=== PATIENT | female | born 1990 | race Caucasian/White ===

== ENCOUNTER 2020-05-09 17:48 | Inpatient (IN) | payer OTHER, MEDICAID ==
[~2020-05-09] VITALS: Ht 157.5 cm; Wt 86.2 kg
[2020-05-10] MEDS ORDERED: MELATONIN 3 MG TABLET PO PRN (11:30)
[2020-05-10 13:29] VITALS: BP 140/93
[2020-05-10] MEDS ORDERED: BACLOFEN 10 MG TABLET PO PRN (13:30)
[2020-05-10] MEDS ORDERED: *NON-FORMULARY MED [ENTER DRUG, DOSE, FREQ IN COMMENTS] CLINICAL ONE (13:30)
[2020-05-10 15:00] VITALS: BP 150/86
[2020-05-10] MEDS ORDERED: SODIUM CHLORIDE 0.9% 250 ML IV ONE (16:31)
[2020-05-10] MEDS: NYSTATIN 15 GM POWDER BOTTLE TP SCH ×2 (16:45→20:48)
[2020-05-10] MEDS: VANCOMYCIN HCL 1.5 GM in DEXTROSE 5%-WATER 250 ML IV SCH ×2 (16:45→23:51)
[2020-05-10] MEDS: DOCUSATE SODIUM 100 MG CAPSULE PO SCH (20:45)
[2020-05-10] MEDS: SENNA 187 MG TABLET PO SCH (20:45)
[2020-05-10] MEDS: BISACODYL 10 MG RECTAL RECTAL SUPPOSITORY PR SCH ×2 (20:46→21:00)
[2020-05-10] MEDS: CHLORHEXIDINE GLUCONATE 4% 118 ML TOPICAL LIQUID TP SCH (20:47)
[2020-05-10] MEDS: GABAPENTIN 300 MG CAPSULE PO SCH (20:47)
[2020-05-10] MEDS: ENOXAPARIN SODIUM 100 MG/ML PF SYRINGE SQ SCH (20:48)
[2020-05-10 23:51] VITALS: BP 156/94
[2020-05-11] MEDS: MEROPENEM 1 GM in SODIUM CHLORIDE 0.9% 100 ML IV SCH ×2 (02:19→11:34)
[2020-05-11 06:54] LABS: BASOPHILS % (AUTO) 1.1 % (0.0-2.0); HEMATOCRIT 26.8 % (36-46); HEMOGLOBIN 8.8 g/dL (12.0-16.0); LYMPHOCYTES # (AUTO) 1.4 K/uL (1.0-4.8); LYMPHOCYTES % (AUTO) 23.9 % (22.0-44.0); MEAN CORPUSCULAR HEMOGLOBIN 29.6 pg (26.0-34.0); MEAN CORPUSCULAR HGB CONC 32.7 G/dL (31.0-37.0); MEAN CORPUSCULAR VOLUME 91 fL (80-100); MONOCYTES # (AUTO) 0.6 K/uL (0.1-1.0); MONOCYTES % (AUTO) 9.2 % (2.0-9.0); NEUTROPHILS # (AUTO) 3.8 K/uL (1.8-7.7); NEUTROPHILS % (AUTO) 62.8 % (40.0-70.0); PLATELET COUNT (AUTO) 367 K/uL (150-450); RED BLOOD CELL COUNT(AUTO) 2.96 MIL/uL (4.00-5.20); RED CELL DISTRIBUTION WIDTH 14.3 % (11.5-14.5)
[2020-05-11 07:07] LABS: ALANINE AMINOTRANSFERASE 51 U/L (12-78); ALKALINE PHOSPHATASE 82 U/L (46-116); ANION GAP 9 mmol/L (8-16); ASPARTATE AMINOTRANSFERASE 30 U/L (15-37); BILIRUBIN,TOTAL 0.2 mg/dL (0.1-1.0); CALCIUM, TOTAL 8.2 mg/dL (8.8-10.5); CARBON DIOXIDE 27 mmol/L (22-29); CHLORIDE 102 mmol/L (98-107); GLOMERULAR FILTR. RATE CALC > 60 mL/min (>60); GLUCOSE,RANDOM 97 mg/dL (70-110); POTASSIUM 3.3 mmol/L (3.5-5.1); SODIUM SERUM 138 mmol/L (136-145); TOTAL PROTEIN, SERUM 5.7 g/dL (6.4-8.2); UREA NITROGEN, BLOOD 6 mg/dL (7-18)
[2020-05-11] MEDS: VANCOMYCIN HCL 1.5 GM in DEXTROSE 5%-WATER 250 ML IV SCH ×3 (07:52→22:01)
[2020-05-11] MEDS ORDERED: ERTAPENEM SODIUM 1 GM/VIAL IM SCH (09:00)
[2020-05-11] MEDS: ENOXAPARIN SODIUM 100 MG/ML PF SYRINGE SQ SCH ×2 (10:05→21:27)
[2020-05-11] MEDS: ACETAMINOPHEN 325 MG TABLET PO PRN (10:05)
[2020-05-11] MEDS: DOCUSATE SODIUM 100 MG CAPSULE PO SCH (10:05)
[2020-05-11] MEDS: GABAPENTIN 300 MG CAPSULE PO SCH ×2 (10:05→21:27)
[2020-05-11] MEDS: NYSTATIN 15 GM POWDER BOTTLE TP SCH ×3 (10:05→21:24)
[2020-05-11] MEDS ORDERED: POTASSIUM CHLORIDE 20 MEQ ER TABLET PO ONE (12:15)
[2020-05-11] MEDS ORDERED: DEXTROSE 5% IV SCH (13:00)
[2020-05-11] MEDS ORDERED: VORICONAZOLE IV SCH (13:00)
[2020-05-11] MEDS ORDERED: WATER IV SCH (13:00)
[2020-05-11 13:49] VITALS: BP 150/96
[2020-05-11] MEDS ORDERED: NOXAFIL PO SCH (14:00)
[2020-05-11 15:12] VITALS: BP 162/93
[2020-05-11] MEDS: ERTAPENEM SODIUM 1 GM in SODIUM CHLORIDE 0.9% 50 ML IV SCH (18:04)
[2020-05-11] MEDS: SENNA 187 MG TABLET PO SCH (21:00)
[2020-05-11] MEDS: CHLORHEXIDINE GLUCONATE 4% 118 ML TOPICAL LIQUID TP SCH (21:24)
[2020-05-12] MEDS: BISACODYL 10 MG RECTAL RECTAL SUPPOSITORY PR SCH ×2 (00:16→21:00)
[2020-05-12 01:00] VITALS: BP 142/92
[2020-05-12] MEDS: VANCOMYCIN HCL 1.5 GM in DEXTROSE 5%-WATER 250 ML IV SCH ×3 (05:33→22:05)
[2020-05-12 08:13] LABS: ANION GAP 6 mmol/L (8-16); CALCIUM, TOTAL 8.2 mg/dL (8.8-10.5); CARBON DIOXIDE 28 mmol/L (22-29); CHLORIDE 103 mmol/L (98-107); CREATININE 0.49 mg/dL (0.60-1.30); GLOMERULAR FILTR. RATE CALC > 60 mL/min (>60); GLUCOSE,RANDOM 93 mg/dL (70-110); POTASSIUM 3.2 mmol/L (3.5-5.1); SODIUM SERUM 137 mmol/L (136-145); UREA NITROGEN, BLOOD 6 mg/dL (7-18)
[2020-05-12 08:17] VITALS: BP 154/92
[2020-05-12] MEDS: ACETAMINOPHEN 325 MG TABLET PO PRN (08:17)
[2020-05-12] MEDS: GABAPENTIN 300 MG CAPSULE PO SCH ×2 (08:20→21:06)
[2020-05-12] MEDS: ENOXAPARIN SODIUM 100 MG/ML PF SYRINGE SQ SCH ×2 (08:21→21:07)
[2020-05-12] MEDS: NYSTATIN 15 GM POWDER BOTTLE TP SCH ×3 (08:24→21:07)
[2020-05-12] MEDS: DOCUSATE SODIUM 100 MG CAPSULE PO SCH ×2 (08:25→21:00)
[2020-05-12] MEDS ORDERED: WATER IV SCH (13:00)
[2020-05-12] MEDS ORDERED: DEXTROSE 5% IV SCH (13:00)
[2020-05-12] MEDS ORDERED: VORICONAZOLE IV SCH (13:00)
[2020-05-12] MEDS: POSACONAZOLE 100 MG TABLET.DR PO SCH (13:37)
[2020-05-12 16:05] VITALS: BP 154/105
[2020-05-12] MEDS: ERTAPENEM SODIUM 1 GM in SODIUM CHLORIDE 0.9% 50 ML IV SCH (18:21)
[2020-05-12 20:12] VITALS: BP 160/98
[2020-05-12 20:29] VITALS: BP 147/95
[2020-05-12] MEDS: SENNA 187 MG TABLET PO SCH (21:00)
[2020-05-12] MEDS: BUTALBITAL/ACETAMINOPHEN/CAFFEINE 50-325-40 MG TABLET PO PRN (21:06)
[2020-05-12] MEDS: CHLORHEXIDINE GLUCONATE 4% 118 ML TOPICAL LIQUID TP SCH (21:06)
[2020-05-13] VITALS: BP 137/77
[2020-05-13] MEDS ORDERED: SODIUM CHLORIDE 0.9% 250 ML IV ONE (04:35)
[2020-05-13] MEDS: 0.9% SODIUM CHLORIDE 10 ML SYRINGE IVP SCH ×3 (05:57→22:39)
[2020-05-13] MEDS: VANCOMYCIN HCL 1.5 GM in DEXTROSE 5%-WATER 250 ML IV SCH ×3 (06:03→22:39)
[2020-05-13] MEDS: DOCUSATE SODIUM 100 MG CAPSULE PO SCH ×2 (09:00→21:00)
[2020-05-13 09:28] VITALS: BP 139/97
[2020-05-13] MEDS: NYSTATIN 15 GM POWDER BOTTLE TP SCH ×3 (10:05→21:40)
[2020-05-13] MEDS: GABAPENTIN 300 MG CAPSULE PO SCH ×2 (10:05→21:40)
[2020-05-13] MEDS: ENOXAPARIN SODIUM 100 MG/ML PF SYRINGE SQ SCH ×2 (10:06→21:40)
[2020-05-13] MEDS: POSACONAZOLE 100 MG TABLET.DR PO SCH (12:52)
[2020-05-13 16:47] LABS: APPEARANCE,URINE CLEAR (CLEAR); BILIRUBIN,URINE NEGATIVE (NEGATIVE); GLUCOSE, URINE (UA) NEGATIVE (NEGATIVE); KETONES,URINE NEGATIVE (NEGATIVE); LEUKOCYTE ESTERASE ,URINE NEGATIVE (NEGATIVE); NITRATE,URINE NEGATIVE (NEGATIVE); OCCULT BLOOD,URINE NEGATIVE (NEGATIVE); PH,URINE 7.5 (5.0-8.0); PROTEIN,URINE NEGATIVE (NEGATIVE)
[2020-05-13 17:00] LABS: RBC,URINE 0-2 /HPF (0-2); WBC,URINE 0-2 /HPF (0-5)
[2020-05-13 17:01] LABS: BACTERIA,URINE Rare /HPF (None Seen); SQUAMOUS EPITHELIAL CELL,UR Few /LPF (None Seen)
[2020-05-13 17:06] VITALS: BP 119/64
[2020-05-13] MEDS: ERTAPENEM SODIUM 1 GM in SODIUM CHLORIDE 0.9% 50 ML IV SCH (18:57)
[2020-05-13] MEDS: SENNA 187 MG TABLET PO SCH (21:00)
[2020-05-13] MEDS: CHLORHEXIDINE GLUCONATE 4% 118 ML TOPICAL LIQUID TP SCH (21:41)
[2020-05-13] MEDS: BISACODYL 10 MG RECTAL RECTAL SUPPOSITORY PR SCH (21:43)
[2020-05-13] MEDS: TAMSULOSIN HCL 0.4 MG CAPSULE PO SCH (21:43)
[2020-05-13 23:30] VITALS: BP 154/99
[2020-05-14] MEDS: VANCOMYCIN HCL 1.5 GM in DEXTROSE 5%-WATER 250 ML IV SCH ×3 (05:59→22:27)
[2020-05-14 06:00] VITALS: BP 132/74
[2020-05-14] MEDS: 0.9% SODIUM CHLORIDE 10 ML SYRINGE IVP SCH ×3 (06:00→23:35)
[2020-05-14 07:03] LABS: BASOPHILS % (AUTO) 0.5 % (0.0-2.0); EOSINOPHILS % (AUTO) 2.9 % (1.0-6.0); HEMATOCRIT 25.7 % (36-46); HEMOGLOBIN 8.5 g/dL (12.0-16.0); LYMPHOCYTES # (AUTO) 1.5 K/uL (1.0-4.8); LYMPHOCYTES % (AUTO) 20.8 % (22.0-44.0); MEAN CORPUSCULAR HEMOGLOBIN 29.4 pg (26.0-34.0); MEAN CORPUSCULAR HGB CONC 33.1 G/dL (31.0-37.0); MEAN CORPUSCULAR VOLUME 89 fL (80-100); MONOCYTES # (AUTO) 0.6 K/uL (0.1-1.0); MONOCYTES % (AUTO) 8.8 % (2.0-9.0); NEUTROPHILS # (AUTO) 4.8 K/uL (1.8-7.7); PLATELET COUNT (AUTO) 417 K/uL (150-450); RED CELL DISTRIBUTION WIDTH 14.1 % (11.5-14.5)
[2020-05-14 07:25] LABS: ANION GAP 6 mmol/L (8-16); CALCIUM, TOTAL 8.2 mg/dL (8.8-10.5); CARBON DIOXIDE 30 mmol/L (22-29); CHLORIDE 103 mmol/L (98-107); CREATININE 0.61 mg/dL (0.60-1.30); GLOMERULAR FILTR. RATE CALC > 60 mL/min (>60); GLUCOSE,RANDOM 98 mg/dL (70-110); POTASSIUM 2.8 mmol/L (3.5-5.1); SODIUM SERUM 139 mmol/L (136-145); UREA NITROGEN, BLOOD 5 mg/dL (7-18)
[2020-05-14 08:01] VITALS: BP 127/78
[2020-05-14] MEDS: POTASSIUM CHL 10 MEQ/WATER 50 ML IV PRN ×5 (08:21→14:05)
[2020-05-14] MEDS: DOCUSATE SODIUM 100 MG CAPSULE PO SCH ×2 (09:00→21:00)
[2020-05-14] MEDS: GABAPENTIN 300 MG CAPSULE PO SCH (09:04)
[2020-05-14] MEDS: NYSTATIN 15 GM POWDER BOTTLE TP SCH ×3 (09:05→21:23)
[2020-05-14] MEDS: ENOXAPARIN SODIUM 100 MG/ML PF SYRINGE SQ SCH ×2 (09:05→21:24)
[2020-05-14] MEDS: LACTOBAC ACID/BULG/BIFID/THERM TABLET PO SCH ×2 (11:44→21:24)
[2020-05-14] MEDS: POSACONAZOLE 100 MG TABLET.DR PO SCH (12:49)
[2020-05-14 15:15] VITALS: BP 133/86
[2020-05-14 15:20] VITALS: BP 122/71
[2020-05-14] MEDS: POTASSIUM CHLORIDE 20 MEQ ER TABLET PO PRN ×3 (15:56→23:31)
[2020-05-14] MEDS: ERTAPENEM SODIUM 1 GM in SODIUM CHLORIDE 0.9% 50 ML IV SCH (18:18)
[2020-05-14] MEDS: ACETAMINOPHEN 325 MG TABLET PO PRN (18:33)
[2020-05-14] MEDS: SENNA 187 MG TABLET PO SCH (21:00)
[2020-05-14] MEDS: BISACODYL 10 MG RECTAL RECTAL SUPPOSITORY PR SCH (21:23)
[2020-05-14] MEDS: GABAPENTIN 100 MG CAPSULE PO SCH (21:24)
[2020-05-14] MEDS: CHLORHEXIDINE GLUCONATE 4% 118 ML TOPICAL LIQUID TP SCH (21:24)
[2020-05-14] MEDS: TAMSULOSIN HCL 0.4 MG CAPSULE PO SCH (21:26)
[2020-05-15 00:26] VITALS: BP 133/84
[2020-05-15 05:33] LABS: ANION GAP 5 mmol/L (8-16); CALCIUM, TOTAL 8.4 mg/dL (8.8-10.5); CARBON DIOXIDE 29 mmol/L (22-29); CHLORIDE 105 mmol/L (98-107); GLOMERULAR FILTR. RATE CALC > 60 mL/min (>60); GLUCOSE,RANDOM 97 mg/dL (70-110); SODIUM SERUM 139 mmol/L (136-145); UREA NITROGEN, BLOOD 5 mg/dL (7-18)
[2020-05-15] MEDS: VANCOMYCIN HCL 1.5 GM in DEXTROSE 5%-WATER 250 ML IV SCH ×3 (06:04→23:36)
[2020-05-15] MEDS: 0.9% SODIUM CHLORIDE 10 ML SYRINGE IVP SCH ×3 (06:22→23:36)
[2020-05-15] MEDS: DOCUSATE SODIUM 100 MG CAPSULE PO SCH ×3 (09:00→21:33)
[2020-05-15] MEDS: GABAPENTIN 100 MG CAPSULE PO SCH ×2 (10:04→21:33)
[2020-05-15] MEDS: NYSTATIN 15 GM POWDER BOTTLE TP SCH ×3 (10:04→21:33)
[2020-05-15] MEDS: LACTOBAC ACID/BULG/BIFID/THERM TABLET PO SCH ×2 (10:04→21:33)
[2020-05-15] MEDS: BUTALBITAL/ACETAMINOPHEN/CAFFEINE 50-325-40 MG TABLET PO PRN (10:04)
[2020-05-15] MEDS: ENOXAPARIN SODIUM 100 MG/ML PF SYRINGE SQ SCH ×2 (10:05→21:33)
[2020-05-15 11:46] VITALS: BP 157/106
[2020-05-15] MEDS: POSACONAZOLE 100 MG TABLET.DR PO SCH (12:40)
[2020-05-15 18:18] VITALS: BP 145/89
[2020-05-15] MEDS: ERTAPENEM SODIUM 1 GM in SODIUM CHLORIDE 0.9% 50 ML IV SCH (19:39)
[2020-05-15] MEDS: SENNA 187 MG TABLET PO SCH ×2 (21:00→21:33)
[2020-05-15] MEDS: BISACODYL 10 MG RECTAL RECTAL SUPPOSITORY PR SCH (21:33)
[2020-05-15] MEDS: TAMSULOSIN HCL 0.4 MG CAPSULE PO SCH (21:33)
[2020-05-15] MEDS: CHLORHEXIDINE GLUCONATE 4% 118 ML TOPICAL LIQUID TP SCH (21:33)
[2020-05-16 00:29] VITALS: BP 141/73
[2020-05-16] MEDS: 0.9% SODIUM CHLORIDE 10 ML SYRINGE IVP SCH ×3 (06:03→23:17)
[2020-05-16] MEDS: VANCOMYCIN HCL 1.5 GM in DEXTROSE 5%-WATER 250 ML IV SCH ×3 (06:03→23:17)
[2020-05-16] MEDS: DOCUSATE SODIUM 100 MG CAPSULE PO SCH ×2 (09:00→21:25)
[2020-05-16 09:02] VITALS: BP 141/91
[2020-05-16] MEDS: GABAPENTIN 100 MG CAPSULE PO SCH ×2 (11:04→21:26)
[2020-05-16] MEDS: ENOXAPARIN SODIUM 100 MG/ML PF SYRINGE SQ SCH ×2 (11:05→21:26)
[2020-05-16] MEDS: POTASSIUM CHLORIDE 20 MEQ ER TABLET PO SCH (11:05)
[2020-05-16] MEDS: NYSTATIN 15 GM POWDER BOTTLE TP SCH ×3 (11:05→21:30)
[2020-05-16] MEDS: LACTOBAC ACID/BULG/BIFID/THERM TABLET PO SCH ×2 (11:05→21:26)
[2020-05-16 12:46] LABS: ANION GAP 10 mmol/L (8-16); CALCIUM, TOTAL 8.5 mg/dL (8.8-10.5); CARBON DIOXIDE 30 mmol/L (22-29); CHLORIDE 103 mmol/L (98-107); CREATININE 0.67 mg/dL (0.60-1.30); GLOMERULAR FILTR. RATE CALC > 60 mL/min (>60); GLUCOSE,RANDOM 99 mg/dL (70-110); POTASSIUM 3.2 mmol/L (3.5-5.1); SODIUM SERUM 143 mmol/L (136-145); UREA NITROGEN, BLOOD 7 mg/dL (7-18)
[2020-05-16] MEDS: POSACONAZOLE 100 MG TABLET.DR PO SCH (13:09)
[2020-05-16] MEDS: ERTAPENEM SODIUM 1 GM in SODIUM CHLORIDE 0.9% 50 ML IV SCH (18:25)
[2020-05-16] MEDS: TAMSULOSIN HCL 0.4 MG CAPSULE PO SCH (21:25)
[2020-05-16] MEDS: SENNA 187 MG TABLET PO SCH (21:26)
[2020-05-16] MEDS: BISACODYL 10 MG RECTAL RECTAL SUPPOSITORY PR SCH (21:29)
[2020-05-16] MEDS: CHLORHEXIDINE GLUCONATE 4% 118 ML TOPICAL LIQUID TP SCH (21:29)
[2020-05-16] MEDS: POTASSIUM CHLORIDE 20 MEQ ER TABLET PO PRN (22:33)
[2020-05-16 22:53] VITALS: BP 139/95
[2020-05-16 23:30] VITALS: BP 140/91
[2020-05-17] MEDS: POTASSIUM CHLORIDE 20 MEQ ER TABLET PO PRN (03:33)
[2020-05-17 06:00] VITALS: BP 140/84
[2020-05-17 07:30] VITALS: BP 137/87
[2020-05-17] MEDS: VANCOMYCIN HCL 1.5 GM in DEXTROSE 5%-WATER 250 ML IV SCH (07:42)
[2020-05-17] MEDS: 0.9% SODIUM CHLORIDE 10 ML SYRINGE IVP SCH ×3 (07:43→22:54)
[2020-05-17] MEDS ORDERED: ACID1TAB13 PO (07:47)
[2020-05-17] MEDS ORDERED: BISA10SU11 PR (07:47)
[2020-05-17] MEDS ORDERED: VANC1.5P11 IVPB (07:47)
[2020-05-17] MEDS ORDERED: GABA-1216 PO (07:47)
[2020-05-17] MEDS ORDERED: ENOX80DI9 SQ (07:47)
[2020-05-17] MEDS ORDERED: POSA100T PO (07:47)
[2020-05-17] MEDS ORDERED: ERTA1I IVPB (07:47)
[2020-05-17] MEDS ORDERED: POTA20TA83 PO (07:47)
[2020-05-17] MEDS ORDERED: TAMS-13 PO (07:47)
[2020-05-17] MEDS ORDERED: DOCU-275 PO (07:47)
[2020-05-17] MEDS ORDERED: NYST15PO3 TP (07:47)
[2020-05-17] MEDS ORDERED: ENOX100D5 SQ (07:51)
[2020-05-17 08:20] LABS: ANION GAP 6 mmol/L (8-16); CALCIUM, TOTAL 8.5 mg/dL (8.8-10.5); CARBON DIOXIDE 30 mmol/L (22-29); CHLORIDE 105 mmol/L (98-107); CREATININE 0.74 mg/dL (0.60-1.30); GLOMERULAR FILTR. RATE CALC > 60 mL/min (>60); GLUCOSE,RANDOM 100 mg/dL (70-110); POTASSIUM 3.7 mmol/L (3.5-5.1); SODIUM SERUM 141 mmol/L (136-145); UREA NITROGEN, BLOOD 7 mg/dL (7-18); VANCOMYCIN,RANDOM 33.6 mcg/mL (25.0-50.0)
[2020-05-17] MEDS: LACTOBAC ACID/BULG/BIFID/THERM TABLET PO SCH ×2 (09:36→21:12)
[2020-05-17] MEDS: GABAPENTIN 100 MG CAPSULE PO SCH ×2 (09:36→21:12)
[2020-05-17] MEDS: DOCUSATE SODIUM 100 MG CAPSULE PO SCH ×2 (09:36→21:12)
[2020-05-17] MEDS: POTASSIUM CHLORIDE 20 MEQ ER TABLET PO SCH (09:37)
[2020-05-17] MEDS: ENOXAPARIN SODIUM 100 MG/ML PF SYRINGE SQ SCH ×2 (09:37→21:12)
[2020-05-17] MEDS: NYSTATIN 15 GM POWDER BOTTLE TP SCH ×3 (09:38→21:13)
[2020-05-17] MEDS: POSACONAZOLE 100 MG TABLET.DR PO SCH (12:38)
[2020-05-17] MEDS: ACETAMINOPHEN 325 MG TABLET PO PRN (13:48)
[2020-05-17 15:55] VITALS: BP 144/98
[2020-05-17] MEDS: ERTAPENEM SODIUM 1 GM in SODIUM CHLORIDE 0.9% 50 ML IV SCH (18:02)
[2020-05-17] MEDS: TAMSULOSIN HCL 0.4 MG CAPSULE PO SCH (21:12)
[2020-05-17] MEDS: BISACODYL 10 MG RECTAL RECTAL SUPPOSITORY PR SCH (21:12)
[2020-05-17] MEDS: SENNA 187 MG TABLET PO SCH (21:12)
[2020-05-17] MEDS: CHLORHEXIDINE GLUCONATE 4% 118 ML TOPICAL LIQUID TP SCH (21:13)
[2020-05-17] MEDS ORDERED: VANCOMYCIN HCL 1 GM/D5% WATER 200 ML IV ONE (23:00)
[2020-05-18] VITALS: BP 119/67
[2020-05-18 07:00] VITALS: BP 125/65
[2020-05-18] MEDS ORDERED: ALTEPLASE 2 MG/VIAL IVCATH ONE ×2 (09:00)
[2020-05-18] MEDS: VANCOMYCIN HCL 1.25 GM in DEXTROSE 5%-WATER 250 ML IV SCH ×2 (09:30→19:30)
[2020-05-18] MEDS: 0.9% SODIUM CHLORIDE 10 ML SYRINGE IVP SCH ×2 (09:30→14:54)
[2020-05-18] MEDS: POTASSIUM CHLORIDE 20 MEQ ER TABLET PO SCH (09:32)
[2020-05-18] MEDS: ENOXAPARIN SODIUM 100 MG/ML PF SYRINGE SQ SCH ×2 (09:32→21:30)
[2020-05-18] MEDS: DOCUSATE SODIUM 100 MG CAPSULE PO SCH ×2 (09:33→21:29)
[2020-05-18] MEDS: GABAPENTIN 100 MG CAPSULE PO SCH ×2 (09:33→21:29)
[2020-05-18] MEDS: MULTIVITAMINS WITH MINERALS, THERAPEUTIC TABLET PO SCH (09:33)
[2020-05-18] MEDS: LACTOBAC ACID/BULG/BIFID/THERM TABLET PO SCH ×2 (09:33→21:29)
[2020-05-18] MEDS: NYSTATIN 15 GM POWDER BOTTLE TP SCH ×3 (09:34→21:30)
[2020-05-18] MEDS: POTASSIUM CHLORIDE 20 MEQ ER TABLET PO PRN (09:35)
[2020-05-18] MEDS: POSACONAZOLE 100 MG TABLET.DR PO SCH (12:43)
[2020-05-18 16:06] VITALS: BP 122/80
[2020-05-18] MEDS: ERTAPENEM SODIUM 1 GM in SODIUM CHLORIDE 0.9% 50 ML IV SCH (18:13)
[2020-05-18] MEDS: TAMSULOSIN HCL 0.4 MG CAPSULE PO SCH (21:29)
[2020-05-18] MEDS: SENNA 187 MG TABLET PO SCH (21:29)
[2020-05-18] MEDS: BISACODYL 10 MG RECTAL RECTAL SUPPOSITORY PR SCH (21:29)
[2020-05-18] MEDS: CHLORHEXIDINE GLUCONATE 4% 118 ML TOPICAL LIQUID TP SCH (21:30)
[2020-05-18] MEDS ORDERED: WATER FOR IRRIGATION,STERILE 1000 ML SOLUTION BOTTLE ONE (22:19)
[2020-05-19] MEDS: VANCOMYCIN HCL 1.25 GM in DEXTROSE 5%-WATER 250 ML IV SCH ×2 (05:07→18:03)
[2020-05-19 05:47] LABS: ANION GAP 5 mmol/L (8-16); CALCIUM, TOTAL 8.6 mg/dL (8.8-10.5); CARBON DIOXIDE 30 mmol/L (22-29); CHLORIDE 104 mmol/L (98-107); CREATININE 0.93 mg/dL (0.60-1.30); GLOMERULAR FILTR. RATE CALC > 60 mL/min (>60); GLUCOSE,RANDOM 99 mg/dL (70-110); POTASSIUM 3.4 mmol/L (3.5-5.1); SODIUM SERUM 139 mmol/L (136-145); UREA NITROGEN, BLOOD 7 mg/dL (7-18)
[2020-05-19 06:00] VITALS: BP 132/89
[2020-05-19] MEDS: GABAPENTIN 100 MG CAPSULE PO SCH ×2 (07:35→21:31)
[2020-05-19] MEDS: MULTIVITAMINS WITH MINERALS, THERAPEUTIC TABLET PO SCH (07:35)
[2020-05-19] MEDS: 0.9% SODIUM CHLORIDE 10 ML SYRINGE IVP SCH ×2 (07:35→21:35)
[2020-05-19] MEDS: POTASSIUM CHLORIDE 20 MEQ ER TABLET PO SCH (07:35)
[2020-05-19] MEDS: DOCUSATE SODIUM 100 MG CAPSULE PO SCH (07:36)
[2020-05-19] MEDS: LACTOBAC ACID/BULG/BIFID/THERM TABLET PO SCH ×2 (07:36→21:32)
[2020-05-19] MEDS: ENOXAPARIN SODIUM 100 MG/ML PF SYRINGE SQ SCH ×2 (07:36→21:31)
[2020-05-19] MEDS: NYSTATIN 15 GM POWDER BOTTLE TP SCH ×3 (07:36→21:31)
[2020-05-19] MEDS: POTASSIUM CHLORIDE 20 MEQ ER TABLET PO PRN (08:25)
[2020-05-19 09:44] VITALS: BP 136/95
[2020-05-19 17:26] VITALS: BP 129/87
[2020-05-19] MEDS: ERTAPENEM SODIUM 1 GM in SODIUM CHLORIDE 0.9% 50 ML IV SCH (17:31)
[2020-05-19] MEDS: SENNA 187 MG TABLET PO SCH (21:32)
[2020-05-19] MEDS: BISACODYL 10 MG RECTAL RECTAL SUPPOSITORY PR SCH (21:32)
[2020-05-19] MEDS: POSACONAZOLE 100 MG TABLET.DR PO SCH (21:32)
[2020-05-19] MEDS: TAMSULOSIN HCL 0.4 MG CAPSULE PO SCH (21:33)
[2020-05-19] MEDS: CHLORHEXIDINE GLUCONATE 4% 118 ML TOPICAL LIQUID TP SCH (21:33)
[2020-05-19] MEDS: ACETAMINOPHEN 325 MG TABLET PO PRN (21:35)
[2020-05-20 05:38] VITALS: BP 150/86
[2020-05-20] MEDS: 0.9% SODIUM CHLORIDE 10 ML SYRINGE IVP SCH ×2 (05:49→19:06)
[2020-05-20] MEDS: VANCOMYCIN HCL 1.25 GM in DEXTROSE 5%-WATER 250 ML IV SCH ×2 (05:59→19:53)
[2020-05-20 06:26] LABS: BASOPHILS % (AUTO) 0.8 % (0.0-2.0); EOSINOPHILS % (AUTO) 4.3 % (1.0-6.0); HEMATOCRIT 24.1 % (36-46); HEMOGLOBIN 8.4 g/dL (12.0-16.0); LYMPHOCYTES # (AUTO) 1.6 K/uL (1.0-4.8); LYMPHOCYTES % (AUTO) 24.3 % (22.0-44.0); MEAN CORPUSCULAR HEMOGLOBIN 30.6 pg (26.0-34.0); MEAN CORPUSCULAR VOLUME 88 fL (80-100); MONOCYTES # (AUTO) 0.7 K/uL (0.1-1.0); MONOCYTES % (AUTO) 10.5 % (2.0-9.0); NEUTROPHILS # (AUTO) 3.9 K/uL (1.8-7.7); NEUTROPHILS % (AUTO) 60.1 % (40.0-70.0); PLATELET COUNT (AUTO) 377 K/uL (150-450); RED BLOOD CELL COUNT(AUTO) 2.75 MIL/uL (4.00-5.20); RED CELL DISTRIBUTION WIDTH 14.3 % (11.5-14.5)
[2020-05-20] MEDS: DOCUSATE SODIUM 100 MG CAPSULE PO SCH ×2 (09:00→21:17)
[2020-05-20 09:30] VITALS: BP 132/94
[2020-05-20] MEDS: GABAPENTIN 100 MG CAPSULE PO SCH (11:27)
[2020-05-20] MEDS: LACTOBAC ACID/BULG/BIFID/THERM TABLET PO SCH ×2 (11:27→21:16)
[2020-05-20] MEDS: POTASSIUM CHLORIDE 20 MEQ ER TABLET PO SCH (11:27)
[2020-05-20] MEDS: MULTIVITAMINS WITH MINERALS, THERAPEUTIC TABLET PO SCH (11:28)
[2020-05-20] MEDS: ENOXAPARIN SODIUM 100 MG/ML PF SYRINGE SQ SCH (11:28)
[2020-05-20] MEDS: NYSTATIN 15 GM POWDER BOTTLE TP SCH ×3 (11:28→21:17)
[2020-05-20] MEDS: POSACONAZOLE 100 MG TABLET.DR PO SCH ×2 (12:00→17:01)
[2020-05-20 14:50] VITALS: BP 133/88
[2020-05-20] MEDS: RIVAROXABAN 15 MG TABLET PO SCH (17:02)
[2020-05-20] MEDS: CHLORHEXIDINE GLUCONATE 4% 118 ML TOPICAL LIQUID TP SCH (19:05)
[2020-05-20] MEDS: ERTAPENEM SODIUM 1 GM in SODIUM CHLORIDE 0.9% 50 ML IV SCH (19:06)
[2020-05-20] MEDS ORDERED: TAMSULOSIN HCL 0.4 MG CAPSULE PO SCH (21:00)
[2020-05-20] MEDS: SENNA 187 MG TABLET PO SCH (21:17)
[2020-05-20] MEDS: BISACODYL 10 MG RECTAL RECTAL SUPPOSITORY PR SCH (21:17)
[2020-05-20] MEDS: ACETAMINOPHEN 325 MG TABLET PO PRN (21:26)
[2020-05-21 00:21] VITALS: BP 138/58
[2020-05-21] MEDS ORDERED: TAMS-13 PO (04:39)
[2020-05-21] MEDS ORDERED: RIVA15T PO (04:44)
[2020-05-21] MEDS ORDERED: RIVA20TA PO (04:44)
[2020-05-21] MEDS ORDERED: MULT-1119 PO (04:47)
[2020-05-21] MEDS ORDERED: VANC1.2521 IV (04:49)
[2020-05-21] MEDS: VANCOMYCIN HCL 1.25 GM in DEXTROSE 5%-WATER 250 ML IV SCH (06:16)
[2020-05-21] MEDS: 0.9% SODIUM CHLORIDE 10 ML SYRINGE IVP SCH (06:16)
[2020-05-21 07:15] LABS: ANION GAP 7 mmol/L (8-16); CARBON DIOXIDE 29 mmol/L (22-29); CHLORIDE 103 mmol/L (98-107); GLOMERULAR FILTR. RATE CALC > 60 mL/min (>60); GLUCOSE,RANDOM 94 mg/dL (70-110); POTASSIUM 3.3 mmol/L (3.5-5.1); SODIUM SERUM 139 mmol/L (136-145); UREA NITROGEN, BLOOD 6 mg/dL (7-18); VANCOMYCIN,RANDOM 29.3 mcg/mL (25.0-50.0)
[2020-05-21 07:23] LABS: CALCIUM, TOTAL 8.5 mg/dL (8.8-10.5)
[2020-05-21 09:00] VITALS: BP 142/95
[2020-05-21] MEDS ORDERED: POTASSIUM CHLORIDE 20 MEQ ER TABLET PO ONE (09:15)
[2020-05-21] MEDS: POTASSIUM CHLORIDE 20 MEQ ER TABLET PO SCH (10:53)
[2020-05-21] MEDS: RIVAROXABAN 15 MG TABLET PO SCH ×2 (10:53→17:00)
[2020-05-21] MEDS: MULTIVITAMINS WITH MINERALS, THERAPEUTIC TABLET PO SCH (10:53)
[2020-05-21] MEDS: LACTOBAC ACID/BULG/BIFID/THERM TABLET PO SCH (10:53)
[2020-05-21] MEDS: DOCUSATE SODIUM 100 MG CAPSULE PO SCH (10:53)
[2020-05-21] MEDS: NYSTATIN 15 GM POWDER BOTTLE TP SCH ×2 (10:54→15:44)
[2020-05-21] MEDS: POSACONAZOLE 100 MG TABLET.DR PO SCH (13:13)
[2020-05-21] MEDS ORDERED: VANCOMYCIN HCL 750 MG in DEXTROSE 5%-WATER 250 ML IV ONE (19:00)
[2020-05-22] MEDS ORDERED: VANCOMYCIN HCL 1 GM/D5% WATER 200 ML IV SCH (07:00)
== END 2020-05-21 16:55 | disposition home health service (06) | DRG 539 ==
LOC: 2WR 05-10 10:20
PROVIDERS: ADMIT Physical Medicine & Rehabilitation; ATTEND Physical Medicine & Rehabilitation
DX: M46.24 Osteomyelitis of vertebra, thoracic region (principal); G82.50 Quadriplegia, unspecified; K59.2 Neurogenic bowel, not elsewhere classified; N39.0 Urinary tract infection, site not specified; I82.621 Acute embolism and thrombosis of deep veins of right upper extremity; L03.312 Cellulitis of back [any part except buttock and flank]; E46 Unspecified protein-calorie malnutrition; M43.24 Fusion of spine, thoracic region; M25.462 Effusion, left knee; N31.9 Neuromuscular dysfunction of bladder, unspecified; E66.09 Other obesity due to excess calories; D64.9 Anemia, unspecified
CPT/HCPCS: 84132; 87081; 94660; 97110; 97163; 97166; 97530; 97535; 99366; J1335; J1650; J2185; J2997; J3370; J3465; J3480; J7050; J7060